=== PATIENT | female | born 1955 | race Caucasian/White ===

== ENCOUNTER 2017-09-14 13:01 | Outpatient (CLI) | payer OTHER | END 2017-09-14 20:48 | disposition home or self-care (01) | LOC: MRD 13:01 | PROVIDERS: ATTEND Neuromusculoskeletal Medicine, Sports Medicine | DX: M19.031 Primary osteoarthritis, right wrist (principal) | CPT/HCPCS: 73110 ==

== ENCOUNTER → 2017-10-06 | Outpatient (CLI) | payer OTHER | END | disposition home or self-care (01) | LOC: MRD 14:03 | DX: M48.07 Spinal stenosis, lumbosacral region (principal); M46.86 Other specified inflammatory spondylopathies, lumbar region; M17.12 Unilateral primary osteoarthritis, left knee | CPT/HCPCS: 72110; 73562 ==

== ENCOUNTER 2019-10-05 12:01 | Outpatient (CLI) | payer OTHER, MEDICAID ==
[2019-10-05 12:25] LABS: BASOPHILS % (AUTO) 0.6 % (0.0-2.0); EOSINOPHILS # (AUTO) 0.5 K/uL (0-0.4); EOSINOPHILS % (AUTO) 7.5 % (0.0-4.0); HEMATOCRIT 40.7 % (36-48); HEMOGLOBIN 13.2 g/dL (12.0-16.0); LYMPHOCYTES # (AUTO) 1.8 K/uL (2.5-16.5); MEAN CORPUSCULAR HEMOGLOBIN 27 pg (27-31); MEAN CORPUSCULAR HGB CONC 32 g/dL (33-37); MEAN CORPUSCULAR VOLUME 84.6 fL (80-94); MONOCYTES # (AUTO) 0.4 K/uL (0.8-1.0); MONOCYTES % (AUTO) 6.1 % (1.7-9.3); NEUTROPHILS # (AUTO) 4.1 K/uL (1.8-7.7); NEUTROPHILS % (AUTO) 59.8 % (42.2-75.2); PLATELET COUNT (AUTO) 291 K/uL (140-450); RED BLOOD CELL COUNT(AUTO) 4.81 MIL/uL (4.20-5.40); RED CELL DISTRIBUTION WIDTH 14.3 % (11.6-13.7); WHITE BLOOD COUNT (AUTO) 6.8 K/uL (4.8-10.8)
[2019-10-05 12:49] LABS: ALBUMIN 3.4 g/dL (3.4-5.0); ANION GAP 11.6 (8-16); CARBON DIOXIDE 26.7 mmol/L (21-32); CHOL/HDL RATIO 2.8 (1-4.5); CREATININE 0.8 mg/dL (0.6-1.3); POTASSIUM 4.3 mmol/L (3.5-5.1); THYROID STIMULATING HORMONE 1.28 uIU/mL (0.34-3.74); TOTAL BILIRUBIN 0.2 mg/dL (0.0-1.0)
[2019-10-05 14:20] LABS: APPEARANCE,URINE HAZY (CLEAR); COLOR,URINE YELLOW (YELLOW); PH,URINE 5.5 (5.0-9.0); UGLUCOSE NEGATIVE (NEGATIVE)
[2019-10-05 14:21] LABS: BILIRUBIN,URINE NEGATIVE (NEGATIVE); BLOOD, URINE 1+ (NEGATIVE); LEUKOCYTE ESTERASE ,URINE 1+ (NEGATIVE); NITRITE, URINE NEGATIVE (NEGATIVE)
[2019-10-05 14:23] LABS: WBC,URINE 0-5 /HPF (0-5)
[2019-10-06 08:41] LABS: T4 FREE (DIRECT) 1.15 ng/dL (0.82-1.77)
== END 2019-10-05 17:35 | disposition home or self-care (01) ==
LOC: MLB 12:01
DX: Z12.39 Encounter for other screening for malignant neoplasm of breast (principal); E66.3 Overweight; M25.512 Pain in left shoulder; Z00.00 Encounter for general adult medical examination without abnormal findings; R59.0 Localized enlarged lymph nodes; R73.09 Other abnormal glucose; N18.3 Chronic kidney disease, stage 3 (moderate); R82.998 Other abnormal findings in urine
CPT/HCPCS: 36415; 76641; 80053; 81001; 82306; 83036; 84439; 84443; 85025; 87086

== ENCOUNTER 2020-02-22 11:55 | Outpatient (CLI) | payer OTHER, MEDICAID ==
[2020-02-24 19:12] LABS: ANTI-NUCLEAR ANTIBODY,DIRECT Negative (Negative)
== END 2020-02-22 20:00 | disposition home or self-care (01) ==
LOC: MLB 11:55
DX: I77.6 Arteritis, unspecified (principal)
CPT/HCPCS: 36415; 85651; 86038; 86140; 86235; 86430

== ENCOUNTER 2022-05-11 18:25 | Emergency (ER) | payer OTHER ==
[~2022-05-11] VITALS: Ht 165.1 cm; Wt 68.0 kg
[2022-05-11 19:30] VITALS: BP 145/63
--- NOTE | 2022-05-11 19:33 | NUR ---
TO LOBBY , A/W BED AMBULATORY
[2022-05-11 20:23] LABS: BASOPHILS % (AUTO) 0.3 % (0.0-2.0); EOSINOPHILS # (AUTO) 0.1 K/uL (0-0.4); EOSINOPHILS % (AUTO) 1.8 % (0.0-4.0); HEMATOCRIT 41.8 % (36-48); HEMOGLOBIN 13.8 g/dL (12.0-16.0); LYMPHOCYTES # (AUTO) 2.1 K/uL (2.5-16.5); MEAN CORPUSCULAR HEMOGLOBIN 27 pg (27-31); MEAN CORPUSCULAR HGB CONC 33 g/dL (33-37); MEAN CORPUSCULAR VOLUME 80.6 fL (80-94); MONOCYTES # (AUTO) 0.6 K/uL (0.8-1.0); MONOCYTES % (AUTO) 9.4 % (1.7-9.3); NEUTROPHILS # (AUTO) 3.6 K/uL (1.8-7.7); NEUTROPHILS % (AUTO) 55.5 % (42.2-75.2); PLATELET COUNT (AUTO) 299 K/uL (140-450); RED BLOOD CELL COUNT(AUTO) 5.18 MIL/uL (4.20-5.40); RED CELL DISTRIBUTION WIDTH 14.1 % (11.6-13.7); WHITE BLOOD COUNT (AUTO) 6.4 K/uL (4.8-10.8)
[2022-05-11 20:46] LABS: ALBUMIN 4.2 g/dL (3.4-5.0); ANION GAP 11.7 (8-16); CARBON DIOXIDE 32.8 mmol/L (21-32); POTASSIUM 3.5 mmol/L (3.5-5.1); TOTAL BILIRUBIN 0.4 mg/dL (0.0-1.0)
--- NOTE | 2022-05-11 22:00 | NUR ---
PT CALLED IN LOBBY TO PROVIDE URINE WITH NO ANSWER.
--- NOTE | 2022-05-11 22:34 | NUR ---
PT LEFT PRIOR TO RECEIVING D/C INSTRUCTIONS
--- NOTE | 2022-05-11 22:34 | NUR ---
PT CALLED AGAIN IN LOBBY AND OUTSIDE WITH NO ANSWER.
== END 2022-05-11 22:34 | disposition home or self-care (01) ==
LOC: MED 18:25
DX: R10.9 Unspecified abdominal pain (principal)
CPT/HCPCS: 36415; 80053; 83690; 85025; 99283

== ENCOUNTER 2022-12-12 19:24 | Emergency (ER) | payer OTHER ==
[~2022-12-12] VITALS: Ht 165.1 cm; Wt 67.6 kg
[2022-12-12 19:48] VITALS: BP 123/77; PULSE 85; RESP 15; TEMP 98.1; O2SAT 95
[2022-12-12 22:24] VITALS: BP 126/62; PULSE 71; RESP 14; O2SAT 99
[2022-12-12] MEDS ORDERED: KETOROLAC 60 MG/2 ML VIAL IM ONE (22:30)
[2022-12-12] MEDS ORDERED: NAPR-54 PO (23:00)
[2022-12-12] MEDS ORDERED: IBUP-2218 PO (23:06)
== END 2022-12-12 23:05 | disposition home or self-care (01) ==
LOC: MED 19:24
DX: S33.9XXA Sprain of unspecified parts of lumbar spine and pelvis, initial encounter (principal); Z79.1 Long term (current) use of non-steroidal anti-inflammatories (NSAID); V89.2XXA Person injured in unspecified motor-vehicle accident, traffic, initial encounter; Y93.89 Activity, other specified; Y92.410 Unspecified street and highway as the place of occurrence of the external cause; Y99.8 Other external cause status
CPT/HCPCS: 72110; 96372; 99283; J1885; Q0092